=== PATIENT | male | born 1990 | race Caucasian/White ===

== ENCOUNTER 2024-10-04 18:21 | Emergency (ER) | payer OTHER, SELFPAY ==
[2024-10-04 18:39] VITALS: BP 132/80; PULSE 109; RESP 17; TEMP 37; O2SAT 96; BMI 25.7
[2024-10-04 18:42] VITALS: BP 149/84; PULSE 109; RESP 17; O2SAT 96
--- NOTE | 2024-10-04 19:00 | XRR_ITS ---
PROCEDURE INFORMATION: Exam: XR Left Finger(s) Exam date and time: 10/04/2024 7:07 PM Age: 34 years old Clinical indication: Injury or trauma; Other: Jammed finger; Patient jammed fifth left digit while playing football. Deformity to finger. ; Additional info: #5 jammed injury playing football TECHNIQUE: Imaging protocol: Radiologic exam of the left fingers. Views: Minimum 2 views. COMPARISON: No relevant prior studies available. FINDINGS: Bones/joints: Posterolateral dislocation of the proximal 5th interphalangeal joint. No definite acute displaced fracture can be seen. Remaining joint spaces as visualized are intact. Soft tissues: Overlying soft tissue deformity. XR/XR finger LT min 2V [id number] IMPRESSION: As above.
[2024-10-04 19:12] VITALS: RESP 18; O2SAT 98
[2024-10-04] MEDS: oxyCODONE-APAP 5-325 mg Tablet 2 TAB PO (19:12)
[2024-10-04] MEDS: lidocaine 1% 10 ML INJ 5 ML INJECTION (19:48)
[2024-10-04] MEDS: BUPivacaine 0.5% INJ 10 mL INJECTION (19:48)
--- NOTE | 2024-10-04 19:48 | XRR_ITS ---
PROCEDURE INFORMATION: Exam: XR Left Finger(s) Exam date and time: 10/04/2024 7:49 PM Age: 34 years old Clinical indication: Screening exam; Post reduction/splint lt 5th digit TECHNIQUE: Imaging protocol: Radiologic exam of the left fingers. Views: Minimum 2 views. COMPARISON: CR (UP EXM, ) 10/04/2024 7:07 PM FINDINGS: Tubes, catheters and devices: Borderline splint material over the 5th digit. Bones/joints: Interval reduction of previously identified proximal 5th interphalangeal joint. No definite acute osseous abnormality can be identified. Soft tissues: Normal. XR/XR finger LT min 2V [id number] IMPRESSION: As above.
--- NOTE | 2024-10-04 19:59 | ED_ITS ---
HPI - Extremity Problem General: Chief complaint: Extremity Injury, Upper Stated complaint: L fifth digit pain Time Seen by Provider: 10/04/24 18:58 History of Present Illness: 34-year-old male who jammed his left pin [place] children. He has an obvious deformity and pain. No bleeding. He used ice. Related Data Previous Rx's ?Medication ?Instructions ?Recorded hydrocodone 5 mg-acetaminophen 325 1 tab PO Q8H PRN pa in #7 tabs 10/04/24 mg tablet Allergies Allergy/AdvReac Type Severity Reaction Status Date / Time No Known Allergies Allergy Verified 10/04/24 18:42 Physical Exam Const: GENERAL APPEARANCE: cooperative; not ill appearing Chest: CHEST: Yes Symmetrical chest wall rise Resp: COMMON NORMALS: normal respiratory effort and No use of accessory musc les Cardio: COMMON NORMALS: regular rate and regular rhythm RATE: regular rate RHYTHM: regular rhythm Extremity: NARRATIVE EXTREMITY EXAM: Left fifth digit deformity consistent with PIP dislocation. He is tender to palpation. Capillary refill is normal distally. Sensation is normal distally. Procedures Nerve Block Nerve Block 1: Time out performed: No Local Anesthetic: lidocaine 1% Amount of anesthesia used (mL): 8 Side: left Nerve Blocks: digital Procedure Successful: Yes Patient Tolerated Procedure: well and no complications Complications: none Orthopedic Joint Reduction Joint #1: Time Out Performed: No Side: left Joint Reduction Location: finger (Fifth PIP) Analgesia: nerve block (Digital block) Local Anesthesia: lidocaine 1% and bupivacaine 0.5% Amount of anesthesic used (mL): 8 Shoulder Technique Used (if applicable): traction/counter-traction Technique used: traction/counter-traction and direct manipulation Post-reduction neuro exam: intact Post-reduction vascular: intact Post Reduction X-Ray Obtained: Yes Post Reduction X-Ray Results: reduced Splint Applied: Yes Patient Tolerated Procedure: well and no complications Course Vital Signs: Vital signs: Vital Signs Temperature 98.6 F 10/04/24 18:39 Pulse Rate 91 10/04/24 20:25 Respiratory Rate 18 10/04/24 19:12 Blood Pressure 149/84 10/04/24 20:25 Pulse Oximetry 99 10/04/24 20:25 Oxygen Delivery Me thod Room Air 10/04/24 18:39 MDM - Extremity (Nontraumatic) Medical Decision Making Digital block performed for PIP dislocation. Painless procedure following without complication. Reduced on x-rayAnd placed an extension block splint. Will have him follow-up with orthopedics Lab Data Radiology Impressions Finger X-Ray 10/04/24 19:48 IMPRESSION: As above. XR interpretation done by ED provider, pending radiology final review Discharge Plan Discharge Patient Disposition: Home Clinical Impression: Dislocation of finger Qualifiers: Encounter type: initial encounter Qualified Code(s): S63.259A - Unspecified dislocation of unspecified finger, initial encounter Condition: Stable Prescriptions: New hydrocodone-acetaminophen 5-325 mg tablet 1 tab PO Q8H PRN (Reason: pain) Qty: 7 0RF Discharge Orders: Discharge ED (Routine); Ordered 10/04/24 Ordered By: Leon Pyle Referrals: Trena Turner MD [Physician] - 4-7 days Patient Instructions: Finger Dislocation (ED), Opioid Safety, Pain Management Activity Restrictions/Additional Instructions: Stay in the extension block splint until seen by orthopedics. Call tomorrow morning for an appointment for follow-up. Return for any problems. You may change the tape on the splint as we discussed. Print Language: Colombian Coding Level of Care Code ED Triage Assistant for Micah Zamora
[2024-10-04 20:25] VITALS: BP 149/84; PULSE 91; O2SAT 99
== END 2024-10-04 20:22 | disposition home or self-care (01) ==
PROVIDERS: Emergency Provider Emergency Medicine
DX: S63.257A Unspecified dislocation of left little finger, initial encounter (principal); X58.XXXA Exposure to other specified factors, initial encounter
CPT/HCPCS: 26770; 73140; 99283; J3490; J9999